=== PATIENT | male | born 1960 | race Caucasian/White ===

== ENCOUNTER 2018-09-13 12:58 | Inpatient (IN) | payer OTHER ==
[2018-09-13 14:39] VITALS: BMI 27.2
--- NOTE | 2018-09-13 16:44 | HP ---
"COWS - Scale Resting Pulse: 0= [place] 80 or Below Sweatin=Flushed/Facial Moisture Restless Observation: 1= Difficult to Sit Still Pupil Size: 2= Moderately Dilated (Pupils = 4 mm) Bone or Joint Aches: 1= Mild Discomfort Runny Nose/ Eye Tearin= Runny Nose/Eyes GI Upset > 30mins: 2= Nausea/Diarrhea (No no diarrhea) Tremor Observation: 2= Slight Tremor Visible Yawning Observation: 0= None Anxiety or Irritability: 1=Feels Anxious/Irritable Goose Flesh Skin: 0=Smooth Skin COWS Score: 13 CIWA Score Nausea/Vomitin-Mild Nausea/No Vomiting Muscle Tremors: 4-Moderate,w/Arms Extend Anxiety: 1-Mildly Anxious Agitation: 1-Slight > Activity Paroxysmal Sweats: 3 Orientation: 0-Oriented Tacttile Disturbances: 0-None Auditory Disturbances: 0-None Visual Disturbances: 0-None Headache: 2-Mild CIWA-Ar Total Score: 12 - Admission Criteria [facility]AS[facility] Guidelines: Admission for Medically Managed Detox: Requires at least one of the followin. CIWA greater than 12 2. Seizures within the past 24 hours 3. Delirium tremens within the past 24 hours 4. Hallucinations within the past 24 hours 5. Acute intervention needed for co occurring medical disorder 6. Acute intervention needed for co occurring psychiatric disorder 7. Severe withdrawal that cannot be handled at a lower level of care (continued vomiting, continued diarrhea, abnormal vital signs) requiring intravenous medication and/or fluids 8. Patient presents the following: CIWA greater than 12 Admission Criteria Met: Admission criteria met Admission [facility] Chief Complaint: Here for heroin and alcohol withdrawal. Allergies/Adverse Reactions: Allergies Allergy/AdvReac Type Severity Reaction Status Date / Time No Known Allergies Allergy Verified 09/13/18 16:36 History of Present Illness: Marijuana use began at age 17. Alcohol use began at age 20. Heroin use began at age 21. Uses IV. Denies sharing needles or works. Nicotine use began at age 89. Benzo use began at age 58. Hx seizure 2010- r/t diabetes. Denies hx blackouts or overdoses. Hx: HIV, DM, Cholesterol, leg edema, PPD+ (on prophylaxis) On insulin and states takes at night rather than during day. States no significant length of time w/o using, laura while incarcerated. Search Terms: Zahra Morales, 1960 Search Date: 09/13/2018 08:07:12 PM The Drug Utilization Report below displays all of the controlled substance prescriptions, if any, that your patient has filled in the last twelve months. The information displayed on this report is compiled from pharmacy submissions to the Department, and accurately reflects the information as submitted by the pharmacies. This report was requested by: Cesilia Nunez | Reference #: [id number] There are no results for the search terms that you entered. Exam Limitations: No Limitations - Ebola screening Have you traveled outside of the country in the last 21 days: No Have you had contact with anyone from an Ebola affected area: No Have you been sick,other than usual withdrawal symptoms: No Do you have a fever: No - Review of Systems Constitutional: Changes in sleep EENT: reports: Blurred Vision (Wears glasses), Dental Problems (Missing and broken teeth. Chews and swallows ok.) Respiratory: reports: No Symptoms reported Cardiac: reports: No Symptoms Reported GI: reports: Nausea : reports: No Symptoms Reported Musculoskeletal: reports: Back Pain (Only when picks up something heavy) Integumentary: reports: No Symptoms Reported Neuro: reports: Headache (MIld r/t withdrawal), Tremors Endocrine: reports: No Symptoms Reported Hematology: reports: No Symptoms Reported Psychiatric: reports: Judgement Intact, Orientated x3, Agitated, Anxious, Depressed (Denies thoughts of harming self or others.) Patient History - PPD History Previous Implant?: Yes Documented Results: Positive w/proof Implanted On Prior R Admission?: No PPD to be Administered?: No - Smoking Cessation Smoking history: Current every day smoker Have you smoked in the past 12 months: Yes Aproximately how many cigarettes per day: 10 Hx Chewing Tobacco Use: No Initiated information on smoking cessation: Yes 'Breaking Loose' booklet given: 09/13/18 - Substance & Tx. History Hx Alcohol Use: Yes Hx Substance Use: Yes Substance Use Type: Alcohol, Heroin Hx Substance Use Treatment: Yes (detox, long-term rehab) - Substances Abused Heroin Route: Inhalation Frequency: Daily Amount used: 6 bags Age of first use: 21 Date of Last Use: 09/13/18 Alcohol Amount used: 1 pint - 1 qt. Age of first use: 20 Date of Last Use: 09/13/18 Marijuana/Hashish Route: Smoking Frequency: Daily Amount used: 1 bag Age of first use: 17 Date of Last Use: 09/13/18 Alprazolam (Xanax) Route: Oral Frequency: Daily Amount used: 2 mg Age of first use: 58 Date of Last Use: 09/09/18 Admission Physical Exam S - Vital Signs Vital Signs: Vital Signs - 24 hr 09/13/18 14:36 Temperature 98.3 F Pulse Rate 79 Respiratory 20 Rate Blood Pressure 120/70 - Physical General Appearance: Yes: Mild Distress, Tremorous, Sweating, Anxious HEENTM: Yes: EOMI, Hearing grossly Normal, ML (Pupils = 4 mm) Respiratory: Yes: Lungs Clear, Normal Breath Sounds, No Respiratory Distress, No Accessory Muscle Use, Other (Cough productive of thick greenish phlegm.) Neck: Yes: No masses,lesions,Nodules, Supple Breast: Yes: Breast Exam Deferred Cardiology: Yes: Regular Rhythm, Regular Rate, S1, S2, Murmur (Denies chest pain. 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 No increased erythema or warmth.) Lymphatic: Yes: Within Normal Limits - Diagnostic (1) Murmur, cardiac Current Visit: Yes Status: Chronic (2) Cough Current Visit: Yes Status: Acute (3) Alcohol dependence with uncomplicated withdrawal Current Visit: Yes Status: Acute (4) Opioid dependence with withdrawal Current Visit: Yes Status: Acute (5) Sedative, hypnotic or anxiolytic abuse, uncomplicated Current Visit: Yes Status: Acute (6) HIV (human immunodeficiency virus infection) Current Visit: Yes Status: Chronic (7) Hypertension Current Visit: Yes Status: Chronic Qualifiers: Hypertension type: essential hypertension Qualified Code(s): I10 - Essential (primary) hypertension (8) Diabetes 1.5, managed as type 1 Current Visit: Yes Status: Chronic (9) PPD negative Current Visit: Yes Status: Chronic Comment: Currently on INH and B-6 since February 2018, (10) Nicotine dependence Current Visit: Yes Status: Chronic Qualifiers: Nicotine product type: cigarettes Substance use status: uncomplicated Qualified Code(s): F17.210 - Nicotine dependence, cigarettes, uncomplicated Cleared for Admission S - Detox or Rehab [facility] Level of Care: Medically Managed Detox Regimen/Protocol: Methadone/Librium S Breath Alcohol Content Breath Alcohol Content: 0 Urine Drug Screen - Results Drug Screen Negative: No Urine Drug Screen Results: THC-Marijuana, OPI-Opiates, BAR-Barbiturates"
[2018-09-13] MEDS ORDERED: MENTHOL/PHENOL 1 EACH UD MM PRN (17:07)
[2018-09-13] MEDS ORDERED: MAGNESIUM CITRATE 300 ML BOTTLE PO PRN (17:07)
[2018-09-13] MEDS ORDERED: MAG HYDROX/AL HYDROX/SIMETH 30 ML UNIT-DOSE CUP PO PRN (17:07)
[2018-09-13] MEDS ORDERED: ACETAMINOPHEN 325 MG TABLET (FP) PO PRN (17:07)
[2018-09-13] MEDS ORDERED: MAGNESIUM HYDROX 2400MG/30ML ORAL SUSPENSION 30 ML CUP PO PRN (17:07)
[2018-09-13] MEDS ORDERED: NICOTINE POLACRILEX 2 MG GUM BC PRN (17:07)
[2018-09-13] MEDS ORDERED: LOPERAMIDE HCL 2 MG CAPSULE PO PRN (17:07)
[2018-09-13] MEDS ORDERED: chlordiazePOXIDE HCL 25 MG CAPSULE PO PRN (17:07)
[2018-09-13] MEDS ORDERED: IBUPROFEN 400 MG TABLET (FP) PO PRN (17:07)
[2018-09-13] MEDS ORDERED: chlordiazePOXIDE HCL 25 MG CAPSULE PO ONE (18:45)
[2018-09-13] MEDS ORDERED: METHADONE HCL 10 MG TABLET (FOR DETOX USE ONLY) PO ONE ×2 (18:45→23:00)
[2018-09-13] MEDS: guaiFENesin 600 MG TABLET.ER (FP) PO SCH (22:03)
[2018-09-13] MEDS: chlordiazePOXIDE HCL 25 MG CAPSULE PO SCH (22:03)
[2018-09-13] MEDS: THIAMINE HCL 100 MG TABLET (FP) PO SCH (22:03)
[2018-09-13] MEDS: ATORVASTATIN CA 10 MG TABLET (FP) PO SCH (22:03)
[2018-09-13 23:42] LABS: URINE APPEARANCE SLCLOUDY; URINE BILIRUBIN NEGATIVE (<2.0 mg/dL); URINE COLOR AMBER; URINE GLUCOSE (UA) 3+ (NEGATIVE); URINE KETONE NEGATIVE (NEGATIVE); URINE LEUK ESTERASE 1+ (NEGATIVE); URINE NITRITE NEGATIVE (NEGATIVE); URINE PROTEIN 2+ (NEGATIVE)
[2018-09-13 23:59] LABS: EPI CELLS RARE /HPF (FEW); URINE HYALINE CAST 290 /lpf; URINE MUCUS MODERATE
[2018-09-14] MEDS: chlordiazePOXIDE HCL 25 MG CAPSULE PO SCH ×4 (05:43→22:24)
[2018-09-14] MEDS ORDERED: METHADONE HCL 10 MG TABLET (FOR DETOX USE ONLY) PO SCH (10:00)
[2018-09-14] MEDS ORDERED: INSULIN (LEVEMIR) 100 UNITS/ML UNITS SQ SCH (10:00)
[2018-09-14 10:15] LABS: HEMATOCRIT 35.8 % (35.4-49); HEMOGLOBIN 11.9 GM/dL (11.7-16.9); MCH 30.8 pg (25.7-33.7); MCHC 33.3 g/dl (32.0-35.9); MEAN CELL VOLUME 92.4 fl (80-96); MEAN PLT VOLUME 8.2 fl (7.5-11.1); PLATELET COUNT 136 K/MM3 (134-434); RBC 3.88 M/mm3 (4.00-5.60); RDW 13.2 % (11.9-15.9); WHITE BLOOD COUNT 5.4 K/mm3 (4.0-10.0)
[2018-09-14] MEDS: HYDROCHLOROTHIAZIDE 12.5 MG CAPSULE (FP) PO SCH (10:54)
[2018-09-14] MEDS: ISONIAZID 300 MG TABLET (FP) PO SCH (10:54)
[2018-09-14] MEDS: guaiFENesin 600 MG TABLET.ER (FP) PO SCH ×2 (10:55→22:25)
[2018-09-14] MEDS: PYRIDOXINE HCL (B-6) 100 MG TABLET PO SCH (10:55)
[2018-09-14] MEDS: PRENATAL VITAMINS W/ FOLIC ACID TABLET (FP) PO SCH (10:55)
[2018-09-14] MEDS: LISINOPRIL 5 MG TABLET (FP) PO SCH (10:55)
[2018-09-14] MEDS: ASPIRIN 81 MG CHEWABLE TABLETS PO SCH (10:55)
[2018-09-14] MEDS: amLODIPine BESYLATE 10 MG TABLET (FP) PO SCH (10:55)
[2018-09-14] MEDS: NICOTINE 21 MG/24 HOURS TOPICAL PATCH TD SCH (10:56)
[2018-09-14 11:03] LABS: ALBUMIN 3.1 g/dl (3.4-5.0); ALK PHOS 119 U/L (45-117); ANION GAP 8 MMOL/L (8-16); BILIRUBIN,TOTAL 0.2 mg/dL (0.2-1); BLOOD UREA NITROGEN 37 mg/dL (7-18); CALCIUM 7.8 mg/dL (8.5-10.1); CHLORIDE 100 mmol/L (98-107); CO2 26 mmol/L (21-32); GLUCOSE,RANDOM 210 mg/dL (74-106); POTASSIUM 4.7 mmol/L (3.5-5.1); SGOT/AST 31 U/L (15-37); SGPT/ALT 33 U/L (13-61); SODIUM 133 mmol/L (136-145); TOT PROT 6.4 g/dl (6.4-8.2)
--- NOTE | 2018-09-14 12:02 | PN ---
[facility] CIWA - CIWA Score Nausea/Vomitin-No Nausea/No Vomiting Muscle Tremors: 4-Moderate,w/Arms Extend Anxiety: 4-Mod. Anxious/Guarded Agitation: 4-Moderately Restless Paroxysmal Sweats: 3 Orientation: 0-Oriented Tacttile Disturbances: 0-None Auditory Disturbances: 0-None Visual Disturbances: 0-None Headache: 0-None Present CIWA-Ar Total Score: 15 [facility] COWS - Scale Resting Pulse: 0= [place] 80 or Below Sweatin=Flushed/Facial Moisture Restless Observation: 1= Difficult to Sit Still Pupil Size: 0= Normal to Room Light Bone or Joint Aches: 2= Severe Diffuse Aches Runny Nose/ Eye Tearin= Runny Nose/Eyes GI Upset > 30mins: 1= Stomach Cramp Tremor Observation of Outstretched Hands: 2= Slight Tremor Visible Yawning Observation: 2= >3x During Session Anxiety or Irritability: 2=Irritable/Anxious Goose Flesh Skin: 0=Smooth Skin COWS Score: 14 S Progress Note (SOAP) Subjective: irritable agitation anxiety body aches nasal congestion tired interrupted sleep Objective: 09/14/18 12:01 Vital Signs Temperature 98.4 F 09/14/18 09:36 Pulse Rate 77 09/14/18 09:36 Respiratory Rate 20 09/14/18 09:36 Blood Pressure 120/69 09/14/18 09:36 O2 Sat by Pulse Oximetry (%) Laboratory Tests 09/13/18 09/13/18 09/14/18 16:58 23:10 06:44 WBC RBC Hgb Hct MCV MCH MCHC RDW Plt Count MPV Sodium Potassium Chloride Carbon Dioxide Anion Gap BUN Creatinine Creat Clearance w eGFR POC Glucometer 237 223 Random Glucose Calcium Total Bilirubin AST ALT Alkaline Phosphatase Total Protein Albumin Urine Color Gissel Urine Appearance Slcloudy Urine pH 5.0 Ur Specific [place] 1.017 Urine Protein 2+ H Urine Glucose (UA) 3+ H Urine Ketones Negative Urine Blood Negative Urine Nitrite Negative Urine Bilirubin Negative Urine Urobilinogen 2.0 Ur Leukocyte Esterase 1+ H Urine WBC (Auto) 9 Urine RBC (Auto) 6 Ur Epithelial Cells Rare Hyaline Casts 290 Urine Mucus Moderate RPR Titer 09/14/18 09/14/18 09/14/18 07:00 07:00 07:00 WBC 5.4 RBC 3.88 L Hgb 11.9 Hct 35.8 MCV 92.4 MCH 30.8 MCHC 33.3 RDW 13.2 Plt Count 136 MPV 8.2 Sodium 133 L Potassium 4.7 Chloride 100 Carbon Dioxide 26 Anion Gap 8 BUN 37 H Creatinine 1.0 Creat Clearance w eGFR > 60 POC Glucometer Random Glucose 210 H Calcium 7.8 L Total Bilirubin 0.2 AST 31 ALT 33 Alkaline Phosphatase 119 H Total Protein 6.4 Albumin 3.1 L Urine Color Urine Appearance Urine pH Ur Specific [place] Urine Protein Urine Glucose (UA) Urine Ketones Urine Blood Urine Nitrite Urine Bilirubin Urine Urobilinogen Ur Leukocyte Esterase Urine WBC (Auto) Urine RBC (Auto) Ur Epithelial Cells Hyaline Casts Urine Mucus RPR Titer Nonreactive 09/14/18 09:59 WBC RBC Hgb Hct MCV MCH MCHC RDW Plt Count MPV Sodium Potassium Chloride Carbon Dioxide Anion Gap BUN Creatinine Creat Clearance w eGFR POC Glucometer 267 Random Glucose Calcium Total Bilirubin AST ALT Alkaline Phosphatase Total Protein Albumin Urine Color Urine Appearance Urine pH Ur Specific [place] Urine Protein Urine Glucose (UA) Urine Ketones Urine Blood Urine Nitrite Urine Bilirubin Urine Urobilinogen Ur Leukocyte Esterase Urine WBC (Auto) Urine RBC (Auto) Ur Epithelial Cells Hyaline Casts Urine Mucus RPR Titer aaox3 ambulating no acute distress Assessment: 09/14/18 12:02 withdrawal sx Plan: continue detox increase fluids
--- NOTE | 2018-09-14 14:50 | EKG ---
Test Reason : Blood Pressure : / mmHG Vent. Rate : 075 BPM Atrial Rate : 075 BPM P-R Int : 146 ms QRS Dur : 084 ms QT Int : 358 ms P-R-T Axes : 063 052 040 degrees QTc Int : 399 ms NORMAL SINUS RHYTHM NORMAL ECG NO PREVIOUS ECGS AVAILABLE Confirmed by NEENA LÓPEZ MD ([id number]) on 09/14/2018 2:50:30 PM Referred By: Confirmed By:NEENA LÓPEZ MD
[2018-09-14] MEDS: MELATONIN 5 MG TABLETS PO PRN (22:25)
[2018-09-14] MEDS: ATORVASTATIN CA 10 MG TABLET (FP) PO SCH (22:25)
[2018-09-14] MEDS: THIAMINE HCL 100 MG TABLET (FP) PO SCH (22:25)
[2018-09-15] MEDS: chlordiazePOXIDE HCL 25 MG CAPSULE PO SCH ×3 (05:33→17:20)
[2018-09-15] MEDS: INSULIN (LEVEMIR) 100 UNITS/ML UNITS SQ SCH (05:36)
[2018-09-15] MEDS: LISINOPRIL 5 MG TABLET (FP) PO SCH (10:16)
[2018-09-15] MEDS: guaiFENesin 600 MG TABLET.ER (FP) PO SCH ×2 (10:16→22:07)
[2018-09-15] MEDS: HYDROCHLOROTHIAZIDE 12.5 MG CAPSULE (FP) PO SCH (10:16)
[2018-09-15] MEDS: PRENATAL VITAMINS W/ FOLIC ACID TABLET (FP) PO SCH (10:16)
[2018-09-15] MEDS: METHADONE HCL 5 MG TABLET (FOR DETOX USE ONLY) PO SCH (10:16)
[2018-09-15] MEDS: amLODIPine BESYLATE 10 MG TABLET (FP) PO SCH (10:16)
[2018-09-15] MEDS: NICOTINE 21 MG/24 HOURS TOPICAL PATCH TD SCH (10:17)
[2018-09-15] MEDS: ASPIRIN 81 MG CHEWABLE TABLETS PO SCH (10:17)
[2018-09-15] MEDS ORDERED: ONDANSETRON 4 MG TABLET PO PRN (12:49)
--- NOTE | 2018-09-15 14:44 | PN ---
S CIWA - CIWA Score Nausea/Vomitin Muscle Tremors: 2 Anxiety: 2 Agitation: 2 Paroxysmal Sweats: No Perspiration Orientation: 0-Oriented Tacttile Disturbances: 0-None Auditory Disturbances: 0-None Visual Disturbances: 0-None Headache: 0-None Present CIWA-Ar Total Score: 8 S COWS - Scale Resting Pulse: 0= [place] 80 or Below Sweatin= Chills/Flushing Restless Observation: 1= Difficult to Sit Still Pupil Size: 0= Normal to Room Light Bone or Joint Aches: 2= Severe Diffuse Aches Runny Nose/ Eye Tearin= None GI Upset > 30mins: 2= Nausea/Diarrhea Tremor Observation of Outstretched Hands: 2= Slight Tremor Visible Yawning Observation: 0= None Anxiety or Irritability: 2=Irritable/Anxious Goose Flesh Skin: 0=Smooth Skin COWS Score: 10 [facility] Progress Note (SOAP) Subjective: PATIENT C/O BODY ACHES, NAUSEA/DIARRHEA, SHAKES AND ANXIETY. Objective: 09/15/18 14:42 Laboratory Tests 09/13/18 09/13/18 09/14/18 16:58 23:10 06:44 WBC RBC Hgb Hct MCV MCH MCHC RDW Plt Count MPV Sodium Potassium Chloride Carbon Dioxide Anion Gap BUN Creatinine Creat Clearance w eGFR POC Glucometer 237 223 Random Glucose Calcium Total Bilirubin AST ALT Alkaline Phosphatase Total Protein Albumin Urine Color Gissel Urine Appearance Slcloudy Urine pH 5.0 Ur Specific [place] 1.017 Urine Protein 2+ H Urine Glucose (UA) 3+ H Urine Ketones Negative Urine Blood Negative Urine Nitrite Negative Urine Bilirubin Negative Urine Urobilinogen 2.0 Ur Leukocyte Esterase 1+ H Urine WBC (Auto) 9 Urine RBC (Auto) 6 Ur Epithelial Cells Rare Hyaline Casts 290 Urine Mucus Moderate RPR Titer 09/14/18 09/14/18 09/14/18 07:00 07:00 07:00 WBC 5.4 RBC 3.88 L Hgb 11.9 Hct 35.8 MCV 92.4 MCH 30.8 MCHC 33.3 RDW 13.2 Plt Count 136 MPV 8.2 Sodium 133 L Potassium 4.7 Chloride 100 Carbon Dioxide 26 Anion Gap 8 BUN 37 H Creatinine 1.0 Creat Clearance w eGFR > 60 POC Glucometer Random Glucose 210 H Calcium 7.8 L Total Bilirubin 0.2 AST 31 ALT 33 Alkaline Phosphatase 119 H Total Protein 6.4 Albumin 3.1 L Urine Color Urine Appearance Urine pH Ur Specific [place] Urine Protein Urine Glucose (UA) Urine Ketones Urine Blood Urine Nitrite Urine Bilirubin Urine Urobilinogen Ur Leukocyte Esterase Urine WBC (Auto) Urine RBC (Auto) Ur Epithelial Cells Hyaline Casts Urine Mucus RPR Titer Nonreactive 09/14/18 09/15/18 09:59 05:35 WBC RBC Hgb Hct MCV MCH MCHC RDW Plt Count MPV Sodium Potassium Chloride Carbon Dioxide Anion Gap BUN Creatinine Creat Clearance w eGFR POC Glucometer 267 389 Random Glucose Calcium Total Bilirubin AST ALT Alkaline Phosphatase Total Protein Albumin Urine Color Urine Appearance Urine pH Ur Specific [place] Urine Protein Urine Glucose (UA) Urine Ketones Urine Blood Urine Nitrite Urine Bilirubin Urine Urobilinogen Ur Leukocyte Esterase Urine WBC (Auto) Urine RBC (Auto) Ur Epithelial Cells Hyaline Casts Urine Mucus RPR Titer PE: ALERT AND ORIENTED X 3 SKIN WARM AND DRY EXT FULL ROM, +TREMORS AMB AD YULISA ANXIOUS AND IRRITABLE Assessment: 09/15/18 14:43 WITHDRAWAL SX Plan: CONTINUE DETOX ENCOURAGE ORAL FLUIDS ADD ZOFRAN FOR NAUSEA CONTINUE TO MONITOR CLINICALLY
[2018-09-15] MEDS: THIAMINE HCL 100 MG TABLET (FP) PO SCH (22:07)
[2018-09-15] MEDS: ATORVASTATIN CA 10 MG TABLET (FP) PO SCH (22:07)
[2018-09-15] MEDS: chlordiazePOXIDE 5 MG CAPSULE PO SCH (22:07)
[2018-09-15] MEDS: MELATONIN 5 MG TABLETS PO PRN (22:09)
[2018-09-16] MEDS: chlordiazePOXIDE 5 MG CAPSULE PO SCH ×3 (06:20→17:34)
[2018-09-16] MEDS: INSULIN (LEVEMIR) 100 UNITS/ML UNITS SQ SCH (06:21)
[2018-09-16] MEDS: ASPIRIN 81 MG CHEWABLE TABLETS PO SCH (10:16)
[2018-09-16] MEDS: PRENATAL VITAMINS W/ FOLIC ACID TABLET (FP) PO SCH (10:16)
[2018-09-16] MEDS: amLODIPine BESYLATE 10 MG TABLET (FP) PO SCH (10:16)
[2018-09-16] MEDS: METHADONE HCL 5 MG TABLET (FOR DETOX USE ONLY) PO SCH (10:17)
[2018-09-16] MEDS: guaiFENesin 600 MG TABLET.ER (FP) PO SCH ×2 (10:17→21:40)
[2018-09-16] MEDS: NICOTINE 21 MG/24 HOURS TOPICAL PATCH TD SCH (10:18)
[2018-09-16] MEDS: LISINOPRIL 5 MG TABLET (FP) PO SCH (10:18)
[2018-09-16] MEDS: HYDROCHLOROTHIAZIDE 12.5 MG CAPSULE (FP) PO SCH (10:18)
--- NOTE | 2018-09-16 13:41 | PN ---
[facility] Progress Note (SOAP) Subjective: sweat tremor restlessness body aches joints pain trouble sleep at night Objective: 09/16/18 13:39 Vital Signs Temperature 98.2 F 09/16/18 09:43 Pulse Rate 77 09/16/18 09:43 Respiratory Rate 16 09/16/18 09:43 Blood Pressure 100/58 L 09/16/18 09:43 O2 Sat by Pulse Oximetry (%) Laboratory Last Values WBC 5.4 K/mm3 (4.0-10.0) 09/14/18 07:00 RBC 3.88 M/mm3 (4.00-5.60) L 09/14/18 07:00 Hgb 11.9 GM/dL (11.7-16.9) 09/14/18 07:00 Hct 35.8 % (35.4-49) 09/14/18 07:00 MCV 92.4 fl (80-96) 09/14/18 07:00 MCH 30.8 pg (25.7-33.7) 09/14/18 07:00 MCHC 33.3 g/dl (32.0-35.9) 09/14/18 07:00 RDW 13.2 % (11.9-15.9) 09/14/18 07:00 Plt Count 136 K/MM3 (134-434) 09/14/18 07:00 MPV 8.2 fl (7.5-11.1) 09/14/18 07:00 Sodium 133 mmol/L (136-145) L 09/14/18 07:00 Potassium 4.7 mmol/L (3.5-5.1) 09/14/18 07:00 Chloride 100 mmol/L (98-107) 09/14/18 07:00 Carbon Dioxide 26 mmol/L (21-32) 09/14/18 07:00 Anion Gap 8 MMOL/L (8-16) 09/14/18 07:00 BUN 37 mg/dL (7-18) H 09/14/18 07:00 Creatinine 1.0 mg/dL (0.55-1.3) 09/14/18 07:00 Creat Clearance w eGFR > 60 (>60) 09/14/18 07:00 POC Glucometer 396 UNITS (80-120) 09/16/18 06:18 Random Glucose 210 mg/dL (74-106) H 09/14/18 07:00 Calcium 7.8 mg/dL (8.5-10.1) L 09/14/18 07:00 Total Bilirubin 0.2 mg/dL (0.2-1) 09/14/18 07:00 AST 31 U/L (15-37) 09/14/18 07:00 ALT 33 U/L (13-61) 09/14/18 07:00 Alkaline Phosphatase 119 U/L (45-117) H 09/14/18 07:00 Total Protein 6.4 g/dl (6.4-8.2) 09/14/18 07:00 Albumin 3.1 g/dl (3.4-5.0) L 09/14/18 07:00 Urine Color Gissel 09/13/18 23:10 Urine Appearance Slcloudy 09/13/18 23:10 Urine pH 5.0 (5.0-8.0) 09/13/18 23:10 Ur Specific [place] 1.017 (1.010-1.035) 09/13/18 23:10 Urine Protein 2+ (NEGATIVE) H 09/13/18 23:10 Urine Glucose (UA) 3+ (NEGATIVE) H 09/13/18 23:10 Urine Ketones Negative (NEGATIVE) 09/13/18 23:10 Urine Blood Negative (NEGATIVE) 09/13/18 23:10 Urine Nitrite Negative (NEGATIVE) 09/13/18 23:10 Urine Bilirubin Negative (<2.0 mg/dL) 09/13/18 23:10 Urine Urobilinogen 2.0 mg/dL (0.2-1.0) 09/13/18 23:10 Ur Leukocyte Esterase 1+ (NEGATIVE) H 09/13/18 23:10 Urine WBC (Auto) 9 /hpf (3-5) 09/13/18 23:10 Urine RBC (Auto) 6 /hpf (0-3) 09/13/18 23:10 Ur Epithelial Cells Rare /HPF (FEW) 09/13/18 23:10 Hyaline Casts 290 /lpf 09/13/18 23:10 Urine Mucus Moderate 09/13/18 23:10 RPR Titer Nonreactive (NONREACTIVE) 09/14/18 07:00 lab noted repeat ua 09/16/18 13:40 Assessment: 09/16/18 13:40 withdrawal sx Plan: continue detox
--- NOTE | 2018-09-16 18:29 | PN ---
S Progress Note Note: bgm is 394,will do bgm achs,plase on insulin coverage on sliding scale,close monitoring
[2018-09-16] MEDS ORDERED: INSULIN (NOVOLOG) ASPART 100 UNITS/ML 10ML VIAL ONE (21:37)
[2018-09-16] MEDS: INSULIN SLIDING SCALE (NOVOLOG) 1 VIAL SQ SCH (21:38)
[2018-09-16] MEDS: ATORVASTATIN CA 10 MG TABLET (FP) PO SCH (21:40)
[2018-09-16] MEDS: THIAMINE HCL 100 MG TABLET (FP) PO SCH (21:40)
[2018-09-16] MEDS: MELATONIN 5 MG TABLETS PO PRN (21:40)
[2018-09-16] MEDS: chlordiazePOXIDE HCL 10 MG CAPSULE PO SCH (22:15)
[2018-09-17] MEDS: chlordiazePOXIDE HCL 10 MG CAPSULE PO SCH ×3 (05:16→18:37)
[2018-09-17] MEDS: INSULIN (LEVEMIR) 100 UNITS/ML UNITS SQ SCH (05:19)
[2018-09-17] MEDS: INSULIN SLIDING SCALE (NOVOLOG) 1 VIAL SQ SCH ×4 (08:12→22:14)
[2018-09-17] MEDS ORDERED: METHADONE HCL 10 MG TABLET (FOR DETOX USE ONLY) PO SCH (10:00)
--- NOTE | 2018-09-17 10:09 | PN ---
[facility] Progress Note (SOAP) Subjective: chills sweats Objective: 09/17/18 10:09 Vital Signs Temperature 97.9 F 09/17/18 09:44 Pulse Rate 84 09/17/18 09:44 Respiratory Rate 18 09/17/18 09:44 Blood Pressure 136/69 09/17/18 09:44 O2 Sat by Pulse Oximetry (%) aaox3 ambulating no acute distress Assessment: 09/17/18 10:09 withdrawal sx Plan: continue detox increase fluids d/c in am
[2018-09-17] MEDS: NICOTINE 21 MG/24 HOURS TOPICAL PATCH TD SCH (10:43)
[2018-09-17] MEDS: ASPIRIN 81 MG CHEWABLE TABLETS PO SCH (10:44)
[2018-09-17] MEDS: amLODIPine BESYLATE 10 MG TABLET (FP) PO SCH (10:45)
[2018-09-17] MEDS: PRENATAL VITAMINS W/ FOLIC ACID TABLET (FP) PO SCH (10:45)
[2018-09-17] MEDS: LISINOPRIL 5 MG TABLET (FP) PO SCH (10:45)
[2018-09-17] MEDS: guaiFENesin 600 MG TABLET.ER (FP) PO SCH ×2 (10:45→22:14)
[2018-09-17] MEDS: HYDROCHLOROTHIAZIDE 12.5 MG CAPSULE (FP) PO SCH (11:20)
[2018-09-17] MEDS ORDERED: INSULIN (NOVOLOG) ASPART 100 UNITS/ML 10ML VIAL ONE (17:30)
[2018-09-17] MEDS: MELATONIN 5 MG TABLETS PO PRN (22:14)
[2018-09-17] MEDS: ATORVASTATIN CA 10 MG TABLET (FP) PO SCH (22:14)
[2018-09-17] MEDS: THIAMINE HCL 100 MG TABLET (FP) PO SCH (22:14)
[2018-09-18] MEDS ORDERED: METHADONE HCL 5 MG TABLET (FOR DETOX USE ONLY) PO SCH (06:00)
[2018-09-18] MEDS ORDERED: INSULIN (NOVOLOG) ASPART 100 UNITS/ML 10ML VIAL ONE (07:51)
[2018-09-18] MEDS: INSULIN SLIDING SCALE (NOVOLOG) 1 VIAL SQ SCH (07:56)
[2018-09-18] MEDS: INSULIN (LEVEMIR) 100 UNITS/ML UNITS SQ SCH (07:56)
--- NOTE | 2018-09-18 09:00 | DS ---
[facility] Detox Discharge Summary Admission Date: 09/13/18 Discharge Date: 09/18/18 - History Present History: Alcohol Dependence, Opioid Dependence, Sedative Dependence - Physical Exam Results Vital Signs: Vital Signs Temperature 97.9 F 09/18/18 06:50 Pulse Rate 75 09/18/18 06:50 Respiratory Rate 18 09/18/18 06:50 Blood Pressure 106/62 09/18/18 06:50 O2 Sat by Pulse Oximetry (%) - Treatment Hospital Course: Detox Protocol Followed, Detoxed Safely, Responded well, Discharged Condition Good, Rehab Referral Accepted - Medication Discharge Medications: Ambulatory Orders Amlodipine Besylate [Norvasc -] 10 mg PO DAILY 09/13/18 Aspirin [ASA -] 81 mg PO DAILY 09/13/18 Atorvastatin Calcium [Lipitor] 10 mg PO HS 09/13/18 Darunavir/Cobicistat [Prezcobix 800 mg-150 mg Tablet] 1 each PO DAILY 09/13/18 Emtricitabine/Tenofov Alafenam [Descovy 200-25 mg Tablet (Nf)] 1 each PO DAILY 09/13/18 Hydrochlorothiazide [Hctz -] 12.5 mg PO DAILY 09/13/18 Insulin Glargine,Hum.rec.anlog [Lantus (nf)] 30 units SQ DAILY 09/13/18 Isoniazid [INH -] 300 mg PO DAILY 09/13/18 Lisinopril 5 mg PO DAILY 09/13/18 Multivitamin [One Daily] 1 each PO DAILY 09/13/18 Pyridoxine HCl [Vitamin B-6] 100 mg PO DAILY 09/13/18 - Diagnosis (1) Alcohol dependence with uncomplicated withdrawal Current Visit: Yes Status: Chronic (2) Cough Current Visit: Yes Status: Acute (3) Opioid dependence with withdrawal Current Visit: Yes Status: Chronic (4) Sedative, hypnotic or anxiolytic abuse, uncomplicated Current Visit: Yes Status: Chronic (5) Diabetes 1.5, managed as type 1 Current Visit: Yes Status: Chronic (6) HIV (human immunodeficiency virus infection) Current Visit: Yes Status: Chronic (7) Hypertension Current Visit: Yes Status: Chronic Qualifiers: Hypertension type: essential hypertension Qualified Code(s): I10 - Essential (primary) hypertension (8) Murmur, cardiac Current Visit: Yes Status: Chronic (9) Nicotine dependence Current Visit: Yes Status: Chronic Qualifiers: Nicotine product type: cigarettes Substance use status: uncomplicated Qualified Code(s): F17.210 - Nicotine dependence, cigarettes, uncomplicated (10) PPD negative Current Visit: Yes Status: Chronic - AMA Did Patient Leave Against Medical Advice: No
[2018-09-18] MEDS: guaiFENesin 600 MG TABLET.ER (FP) PO SCH (09:36)
[2018-09-18] MEDS: PRENATAL VITAMINS W/ FOLIC ACID TABLET (FP) PO SCH (09:36)
[2018-09-18] MEDS: PYRIDOXINE HCL (B-6) 100 MG TABLET PO SCH (09:36)
[2018-09-18] MEDS: ISONIAZID 300 MG TABLET (FP) PO SCH (09:36)
[2018-09-18] MEDS: ASPIRIN 81 MG CHEWABLE TABLETS PO SCH (09:36)
[2018-09-18] MEDS: HYDROCHLOROTHIAZIDE 12.5 MG CAPSULE (FP) PO SCH (09:36)
[2018-09-18] MEDS: LISINOPRIL 5 MG TABLET (FP) PO SCH (09:36)
[2018-09-18] MEDS: amLODIPine BESYLATE 10 MG TABLET (FP) PO SCH (09:36)
[2018-09-18 09:37] VITALS: BP 119/75; PULSE 85; TEMP 97.7
== END 2018-09-18 10:00 | disposition home or self-care (01) | DRG 773 ==
LOC: YASAS 12:58 → Y6N 18:32
PROC: HZ2ZZZZ Detoxification Services for Substance Abuse Treatment (ICD-10-PCS; principal; 2018-09-13)
DX: F11.23 Opioid dependence with withdrawal (principal); F10.230 Alcohol dependence with withdrawal, uncomplicated; F13.10 Sedative, hypnotic or anxiolytic abuse, uncomplicated; F17.210 Nicotine dependence, cigarettes, uncomplicated; Z21 Asymptomatic human immunodeficiency virus [HIV] infection status; I10 Essential (primary) hypertension; E13.9 Other specified diabetes mellitus without complications; R01.1 Cardiac murmur, unspecified; R76.11 Nonspecific reaction to tuberculin skin test without active tuberculosis; R05 Cough; Z79.4 Long term (current) use of insulin
CPT/HCPCS: 36415; 80053; 81003; 81015; 82962; 85027; 86593; 93005; 93010